=== PATIENT | male | born 1990 | race Caucasian/White ===

== ENCOUNTER 2018-05-29 16:48 | Emergency (ER) | payer MEDICAID ==
[~2018-05-29] VITALS: Ht 180.3 cm; Wt 80.0 kg
[~2018-05-29 16:48] MED LIST: CLON0.5T20 PO
--- NOTE | 2018-05-29 16:58 | NUR ---
PT SCOTT TOUSSAINT FROM [place] FOR MEDICAL CLEARANCE STATING THAT THE PT IS ASHY. ONCE PT IS MEDICALLY CLEARED THEY WILL TAKE HIM BACK. PT DENIES HAVING ANY SYMPTOMS. PT IS ALERT, ORIENTED, WITH NAD. CALL LIGHT WITHIN REACH.
--- NOTE | 2018-05-29 17:04 | NUR ---
PT IS ON A LEGAL HOLD AT [facility] FOR SI. PT DENIES BEING SI. HE STATED THAT HE WAS EARLIER, BUT DENIES SI NOW. PT PLACED IN SECURE ROOM CLOSE TO NURSE.
[2018-05-29 18:15] LABS: BASOPHILS # (AUTO) 0.04 x10^3/uL (0-0.1); BASOPHILS % (AUTO) 1 % (0-1); EOSINOPHILS # (AUTO) 0.08 x10^3/uL (0-0.4); EOSINOPHILS % (AUTO) 1 % (1-7); LYMPHOCYTES # (AUTO) 2.21 x10^3/uL (1-3.4); LYMPHOCYTES % (AUTO) 31 % (22-44); MD NO; MEAN CORPUSCULAR HEMOGLOBIN 29.9 pg (27.5-34.5); MEAN CORPUSCULAR HGB CONC 33.9 g/dL (33.2-36.2); MEAN CORPUSCULAR VOLUME 88.2 fL (81-97); MONOCYTES % (AUTO) 8 % (2-9); NEUTROPHILS # (AUTO) 4.32 x10^3/uL (1.8-6.8); NEUTROPHILS % (AUTO) 60 % (42-75); PLATELET COUNT 343 x10^3/uL (130-400); RED BLOOD COUNT 5.74 x10^6/uL (4.38-5.82); RED CELL DISTRIBUTION WIDTH 13.6 % (9.4-14.8)
[2018-05-29 18:24] LABS: ALANINE AMINOTRANSFERASE 37 U/L (12-78); ALBUMIN 4.5 g/dL (3.4-5.0); ANION GAP 4 mmol/L (5-15); CALCIUM 9.2 mg/dL (8.5-10.1); CHLORIDE 108 mmol/L (98-107); CREATININE 1.21 mg/dL (0.7-1.3)
[2018-05-29 18:26] LABS: ALKALINE PHOSPHATASE 120 U/L (45-117); BILIRUBIN,TOTAL 0.6 mg/dL (0.2-1.0); SALICYLATE LEVEL < 1.7 mg/dL (2.8-20.0); TOTAL PROTEIN 8.3 g/dL (6.4-8.2)
[2018-05-29 18:28] LABS: ACETAMINOPHEN < 2 mcg/mL (10-30)
[2018-05-29 19:48] LABS: AMPHETAMINE SCREEN, URINE Negative (Negative); BARBITURATE SCREEN, URINE Negative (Negative); BENZODIAZEPINE SCREEN, URINE Negative (Negative); CANNABINOID SCREEN, URINE Negative (Negative); COCAINE SCREEN, URINE Negative (Negative); METHADONE SCREEN, URINE Negative (Negative); OPIATE SCREEN, URINE Negative (Negative)
[2018-05-29 20:09] VITALS: BP 127/80
--- NOTE | 2018-05-29 20:55 | NUR ---
[facility] CALLED TO GIVE ACCEPTING DOC AND STATED THEY WILL NOW ACCEPT PT.
--- NOTE | 2018-05-29 21:11 | NUR ---
CALLED [facility] TO GET APPROVAL NUMBER FOR EMS TRANSPORT. PER [facility] THEY COULD NOT VERIFY PT HAS MEDICAID INSURANCE. BREANA CALLED, GIVEN THIS INFORMATION. BREANA ABLE TO SCHEDULE RIDE FOR PT BACK TO [facility]. ETA [id number]
== END 2018-05-29 22:00 ==
LOC: ED 18:37
DX: F20.2 Catatonic schizophrenia (principal); F33.8 Other recurrent depressive disorders; F41.1 Generalized anxiety disorder
CPT/HCPCS: 36415; 80053; 80307; 80329; 85025; 99285; G0480

== ENCOUNTER 2018-08-16 23:48 | Observation (INO) | payer MEDICAID ==
[~2018-08-16] VITALS: Ht 180.3 cm; Wt 98.0 kg
[2018-08-17] MEDS ORDERED: SODIUM CHLORIDE 0.9% 1,000ML IVBOLUS ONE
[2018-08-17] MEDS ORDERED: BUPR150T73 PO
[2018-08-17] MEDS ORDERED: ZOLP10TA PO
[2018-08-17] MEDS ORDERED: HYDR10TA4 PO
[2018-08-17] MEDS ORDERED: QUET300T5 PO (00:03)
[2018-08-17] MEDS ORDERED: CLON1TAB11 PO (00:03)
--- NOTE | 2018-08-17 00:12 | NUR ---
PTS MOTHER AND FATHER NOW AT BEDSIDE. POC DISCUSSED. IV FLUIDS INFUSING. PT REQUESTING VYVANSE TO HELP HIM CONCENTRATE, PT DENIES FURTHER NEEDS. PARENTS DENY FURTHER NEEDS AT THIS TIME.
[2018-08-17 00:19] LABS: BASOPHILS # (AUTO) 0.04 x10^3/uL (0-0.1); BASOPHILS % (AUTO) 1 % (0-1); EOSINOPHILS # (AUTO) 0.08 x10^3/uL (0-0.4); EOSINOPHILS % (AUTO) 1 % (1-7); LYMPHOCYTES # (AUTO) 1.84 x10^3/uL (1-3.4); LYMPHOCYTES % (AUTO) 25 % (22-44); MD NO; MEAN CORPUSCULAR HEMOGLOBIN 30.1 pg (27.5-34.5); MEAN CORPUSCULAR HGB CONC 34.4 g/dL (33.2-36.2); MEAN CORPUSCULAR VOLUME 87.6 fL (81-97); MEAN PLATELET VOLUME 7.7 fL (7.4-10.4); MONOCYTES # (AUTO) 0.57 x10^3/uL (0.2-0.8); MONOCYTES % (AUTO) 8 % (2-9); NEUTROPHILS # (AUTO) 4.77 x10^3/uL (1.8-6.8); NEUTROPHILS % (AUTO) 65 % (42-75); PLATELET COUNT 272 x10^3/uL (130-400); RED BLOOD COUNT 5.18 x10^6/uL (4.38-5.82); RED CELL DISTRIBUTION WIDTH 12.8 % (9.4-14.8)
[2018-08-17 00:32] LABS: ALBUMIN 3.7 g/dL (3.4-5.0); ANION GAP 7 mmol/L (5-15); CALCIUM 8.5 mg/dL (8.5-10.1); CHLORIDE 107 mmol/L (98-107)
[2018-08-17 00:36] LABS: ACETAMINOPHEN < 2 mcg/mL (10-30); ALANINE AMINOTRANSFERASE 52 U/L (12-78); ALKALINE PHOSPHATASE 88 U/L (45-117); BILIRUBIN,TOTAL 0.6 mg/dL (0.2-1.0); CREATININE 1.28 mg/dL (0.7-1.3); SALICYLATE LEVEL < 1.7 mg/dL (2.8-20.0); TOTAL PROTEIN 6.8 g/dL (6.4-8.2)
--- NOTE | 2018-08-17 00:52 | NUR ---
POISON CONTROL CALLED. SPOKE TO ARCHIE REF #[id number]. SHE STATES TO WATCH FOR ADMISSIONS DEAN DEPRESSION AND HALLUCINATIONS WELL QRS WIDENING AND SZ. TREAT WITH FLUIDS AND BENZOS. MINIMUM OBS OF 6 HOURS.
[2018-08-17] MEDS: SODIUM CHLORIDE 0.9% 1,000 ML IV SCH ×2 (01:53→07:55)
[2018-08-17 01:54] VITALS: BP 128/70
[2018-08-17] MEDS ORDERED: hydrALAzine 20 MG/ML, 1ML IVPush PRN (02:00)
[2018-08-17 02:46] LABS: AMPHETAMINE SCREEN, URINE Negative (Negative); BARBITURATE SCREEN, URINE Negative (Negative); BENZODIAZEPINE SCREEN, URINE Negative (Negative); CANNABINOID SCREEN, URINE Negative (Negative); COCAINE SCREEN, URINE Negative (Negative); METHADONE SCREEN, URINE Negative (Negative); OPIATE SCREEN, URINE Negative (Negative)
[2018-08-17] MEDS ORDERED: LISD50CA3 PO (06:24)
== END 2018-08-17 08:25 | disposition left against medical advice (07) ==
LOC: ED 08-17 01:01 → EDIP 08-17 01:05 → INTOOBSV 08-17 01:05 → 4WST 08-17 01:22
PROVIDERS: ADMIT Family Medicine; ATTEND Family Medicine
DX: T50.991A Poisoning by other drugs, medicaments and biological substances, accidental (unintentional), initial encounter (principal); E86.0 Dehydration; F32.9 Major depressive disorder, single episode, unspecified; F41.9 Anxiety disorder, unspecified; Z79.899 Other long term (current) drug therapy; Y92.89 Other specified places as the place of occurrence of the external cause
CPT/HCPCS: 36415; 80053; 80307; 80329; 85025; 93005; 96360; 96361; 99284; G0378; J7030; G0480

== ENCOUNTER 2019-10-05 06:43 | Emergency (ER) | payer MEDICAID, OTHER ==
[~2019-10-05] VITALS: Ht 182.9 cm; Wt 80.0 kg
[~2019-10-05 06:43] MED LIST changes: +BUPR150T73 PO; +CLON1TAB11 PO; +HYDR-2995 PO; +LISD50CA3 PO; +QUET300T5 PO; +ZOLP10TA PO
--- NOTE | 2019-10-05 06:57 | NUR ---
REPORT GIVEN TO MARCO AGUSTIN
--- NOTE | 2019-10-05 06:58 | NUR ---
report received from lisa parrish.
== END 2019-10-05 07:52 | disposition home or self-care (01) ==
LOC: ED 07:15
DX: Z00.00 Encounter for general adult medical examination without abnormal findings (principal); F17.200 Nicotine dependence, unspecified, uncomplicated
CPT/HCPCS: 36415; 86705; 86706; 86803; 87340; 87806; 99283; G0475